=== PATIENT | male | born 1990 | race Caucasian/White ===

== ENCOUNTER 2022-03-11 13:18 | Emergency (ER) | payer OTHER ==
[~2022-03-11] VITALS: Ht 175.3 cm; Wt 104.5 kg
[2022-03-11] MEDS ORDERED: OMEPRAZOLE20 MG PO (14:33)
--- NOTE | 2022-03-13 12:25 | EKG ---
[facility] [address] [place] [address] Signed Normal sinus rhythm Normal ECG No previous ECGs available Confirmed by Zoya Aviles MD () on 03/11/2022 11:32:21 PM Electronically Signed By: ZOYA AVILES MD 03/11/22 233 Electronically Signed By: ZOYA AVILES MD 03/13/22 1225 PATIENT NAME: MARYLUAISHA Electrocardiogram DATE OF : 88 PHYSICIAN: ZOYA AVILES MD REPORT #: [id number] REPORT IS CONFIDENTIAL AND NOT TO BE RELEASED WITHOUT AUTHORIZATION
== END 2022-03-11 16:51 | disposition home or self-care (01) ==
LOC: ED 13:18
DX: R55 Syncope and collapse (principal); Z79.899 Other long term (current) drug therapy
CPT/HCPCS: 36415; 71045; 80053; 83735; 84484; 85025; 96360; 96361; 99284-25; J7030